=== PATIENT | female | born 1970 | race Caucasian/White ===

== ENCOUNTER → 2017-02-28 08:14 | Outpatient (CLI) | payer BC ==
[2012-05-06 10:05] VITALS: BMI 35.3
== END | disposition home or self-care (01) ==
LOC: D.CT 02-26 10:00
DX: J98.4 Other disorders of lung (principal); Z12.31 Encounter for screening mammogram for malignant neoplasm of breast

== ENCOUNTER → 2017-04-16 14:24 | Outpatient (CLI) | payer BC ==
[2012-05-06 10:05] VITALS: BMI 35.3
== END | disposition home or self-care (01) ==
LOC: D.MAMMO 09:15
DX: Z12.31 Encounter for screening mammogram for malignant neoplasm of breast (principal)

== ENCOUNTER 2017-07-11 19:28 | Emergency (ER) | payer BC | END 2017-07-11 21:57 | disposition home or self-care (01) | LOC: D.ER 19:28 | DX: T78.40XA Allergy, unspecified, initial encounter (principal); X58.XXXA Exposure to other specified factors, initial encounter; H66.92 Otitis media, unspecified, left ear ==

== ENCOUNTER 2018-01-02 07:00 | Day surgery (SDC) | payer BC ==
[2018-01-01 16:25] LABS: BASOPHILS 0.3 % (0-2); EOSINOPHILS 1.9 % (0-7); HEMATOCRIT 36.5 % (36.0-48.0); HEMOGLOBIN 11.7 g/dL (12-16); IMMATURE GRANULOCYTES 0.2 % (0-5); LYMPHOCYTES 19.6 % (15-50); MCH 27.5 pg (26.0-34.0); MCHC 32.1 g/dL (31.0-37.0); MCV 85.9 fL (80.0-100.0); MEAN PLATELET VOLUME 9.4 fL (7.4-10.4); RBC 4.25 10x6/uL (4.00-5.40); RDW 14.4 % (11.5-14.5); WBC 5.7 10x3/uL (4.8-10.8)
[2018-01-01 16:26] LABS: PLATELET COUNT 183 10x3/uL (130-400)
[2018-01-01 16:42] LABS: HCG URINE NEGATIVE (NEGATIVE)
[2018-01-01 19:12] LABS: ALBUMIN 3.8 g/dL (3.4-5.0); ALKALINE PHOSPHATASE 55 U/L (46-116); ALT (SGPT) 26 U/L (10-68); BILIRUBIN - TOTAL 0.29 mg/dL (0.2-1.3); CALC OSMOLALITY 283 mosm/kg (275-300); CALCIUM 8.2 mg/dL (8.5-10.1); CARBON DIOXIDE 28.9 mmol/L (21.0-32.0); CHLORIDE - SERUM 104 mmol/L (98-107); CREATININE - SERUM 0.8 mg/dL (0.6-1.3); GLUCOSE 122 mg/dL (74-106); POTASSIUM - SERUM 3.7 mmol/L (3.5-5.1); PROTEIN - SERUM 6.7 g/dL (6.4-8.2); SODIUM 141 mmol/L (136-145); UREA NITROGEN 19 mg/dL (7-18); eGFR NON AFRICAN AMERICAN 81 mL/min (90-120)
[~2018-01-02] VITALS: Ht 172.7 cm; Wt 100.7 kg
[~2018-01-02 07:00] MED LIST: CELEXA20 MG PO; COZAAR100 MG PO
[2018-01-02 07:37] VITALS: BP 124/76; BMI 33.8
[2018-01-02 08:06] LABS: HCG URINE NEGATIVE (NEGATIVE)
[2018-01-02 10:59] VITALS: Ht 172.7 cm; Wt 100.7 kg
== END 2018-01-02 13:50 | disposition home or self-care (01) ==
LOC: D.OPS 07:00 → D.PAN 09:00 → D.OPS 09:00
PROVIDERS: Obstetrics & Gynecology
DX: N92.0 Excessive and frequent menstruation with regular cycle (principal); I10 Essential (primary) hypertension; D64.9 Anemia, unspecified; F41.9 Anxiety disorder, unspecified; Z79.899 Other long term (current) drug therapy; Z88.0 Allergy status to penicillin; Z88.2 Allergy status to sulfonamides; Z01.812 Encounter for preprocedural laboratory examination

== ENCOUNTER → 2018-09-11 23:29 | Outpatient (CLI) | payer BC ==
[2018-01-02 10:59] VITALS: BMI 33.8
== END | disposition home or self-care (01) ==
LOC: D.MAMMO 08-31 13:15
PROVIDERS: ATTEND Emergency Medicine
DX: Z12.31 Encounter for screening mammogram for malignant neoplasm of breast (principal)

== ENCOUNTER → 2019-04-19 11:45 | Outpatient (CLI) | payer BC ==
[2018-01-02 10:59] VITALS: BMI 33.8
[2019-04-19 13:11] LABS: ALBUMIN 3.9 g/dL (3.4-5.0); BILIRUBIN - DIRECT 0.08 mg/dL (0.00-0.30); BILIRUBIN - INDIRECT 0.41 mg/dL (0.00-1.00); BILIRUBIN - TOTAL 0.49 mg/dL (0.2-1.3); PROTEIN - SERUM 7.1 g/dL (6.4-8.2)
[2019-04-19 13:12] LABS: AMYLASE - SERUM 48 U/L (25-115); LIPASE 224 U/L (73-393)
== END | disposition home or self-care (01) ==
LOC: D.US 11:30
PROVIDERS: ATTEND Internal Medicine Gastroenterology
DX: K76.0 Fatty (change of) liver, not elsewhere classified (principal)

== ENCOUNTER → 2019-05-03 09:43 | Outpatient (CLI) | payer BC ==
[2018-01-02 10:59] VITALS: BMI 33.8
== END | disposition home or self-care (01) ==
LOC: D.MRI 09:43
PROVIDERS: ATTEND Internal Medicine Gastroenterology
DX: R10.9 Unspecified abdominal pain (principal); E78.41 Elevated Lipoprotein(a)

== ENCOUNTER → 2020-10-24 09:18 | Outpatient (CLI) | payer BC ==
[2018-01-02 10:59] VITALS: BMI 33.8
[2020-10-24 09:56] LABS: ALBUMIN 3.8 g/dL (3.4-5.0); BILIRUBIN - DIRECT 0.11 mg/dL (0.00-0.30); BILIRUBIN - INDIRECT 0.28 mg/dL (0.00-1.00); BILIRUBIN - TOTAL 0.39 mg/dL (0.2-1.3); PROTEIN - SERUM 7.3 g/dL (6.4-8.2)
== END | disposition home or self-care (01) ==
LOC: D.US 08:45
PROVIDERS: ATTEND Internal Medicine Gastroenterology
DX: K76.0 Fatty (change of) liver, not elsewhere classified (principal)